=== PATIENT | female | born 1965 | race Hispanic/Latino ===

== ENCOUNTER → 2017-05-26 | Outpatient (CLI) | payer OTHER | END | disposition home or self-care (01) | LOC: OIH 14:57 | PROVIDERS: ATTEND Internal Medicine Cardiovascular Disease | DX: Z13.6 Encounter for screening for cardiovascular disorders (principal) | CPT/HCPCS: 75571 ==

== ENCOUNTER 2021-03-31 07:08 | Emergency (ER) | payer MEDICAID, OTHER ==
[~2021-03-31] VITALS: Ht 165.1 cm; Wt 89.4 kg
[2021-03-31 07:10] VITALS: BP 167/86
[2021-03-31] MEDS ORDERED: MORPHINE 4 MG SYG IM ONE (08:30)
== END 2021-03-31 08:24 | disposition home or self-care (01) ==
LOC: EDH 07:08
DX: G89.29 Other chronic pain (principal); F11.20 Opioid dependence, uncomplicated; R42 Dizziness and giddiness; I10 Essential (primary) hypertension; G62.9 Polyneuropathy, unspecified; G40.909 Epilepsy, unspecified, not intractable, without status epilepticus; Z88.6 Allergy status to analgesic agent
CPT/HCPCS: 96372; 99283; J2270

== ENCOUNTER 2021-04-01 23:20 | Emergency (ER) | payer MEDICAID ==
[~2021-04-01] VITALS: Ht 172.7 cm; Wt 99.8 kg
[2021-04-01 23:22] VITALS: BP 152/86
[2021-04-02] MEDS ORDERED: HYDROCODONE/ACETAMINOPHEN 5/325 MG TAB PO ONE (02:00)
== END 2021-04-02 02:25 | disposition home or self-care (01) ==
LOC: EDH 23:20
DX: G89.29 Other chronic pain (principal); F11.20 Opioid dependence, uncomplicated; R53.1 Weakness; I10 Essential (primary) hypertension; M79.7 Fibromyalgia; Z88.5 Allergy status to narcotic agent; Z88.8 Allergy status to other drugs, medicaments and biological substances
CPT/HCPCS: 99281

== ENCOUNTER 2021-04-07 06:14 | Emergency (ER) | payer MEDICAID ==
[~2021-04-07] VITALS: Ht 165.1 cm; Wt 87.5 kg
[2021-04-07] MEDS ORDERED: KETOROLAC 60 MG VIAL (30MG/ML) ONE (07:24)
[2021-04-07] MEDS ORDERED: KETOROLAC 60 MG VIAL (30MG/ML) IM SCH (07:30)
[2021-04-07 07:44] VITALS: BP 134/86
== END 2021-04-07 07:59 | disposition home or self-care (01) ==
LOC: EDH 06:14
DX: G89.29 Other chronic pain (principal); M54.9 Dorsalgia, unspecified; I10 Essential (primary) hypertension; G40.909 Epilepsy, unspecified, not intractable, without status epilepticus; Z90.710 Acquired absence of both cervix and uterus; Z88.6 Allergy status to analgesic agent; Z88.1 Allergy status to other antibiotic agents
CPT/HCPCS: 96372; 99284; J1885

== ENCOUNTER 2021-11-16 07:44 | Emergency (ER) | payer MEDICAID ==
[~2021-11-16] VITALS: Ht 165.1 cm; Wt 90.7 kg
[2021-11-16 10:14] VITALS: BP 135/74
== END 2021-11-16 10:16 | disposition home or self-care (01) ==
LOC: EDH 07:44
DX: G89.29 Other chronic pain (principal); F11.20 Opioid dependence, uncomplicated; I10 Essential (primary) hypertension; M79.7 Fibromyalgia; Z98.890 Other specified postprocedural states; Z88.6 Allergy status to analgesic agent; Z88.1 Allergy status to other antibiotic agents
CPT/HCPCS: 93005